=== PATIENT | male | born 1970 | race Caucasian/White ===

== ENCOUNTER → 2024-12-20 | Day surgery (SDC) | payer BC ==
[~2024-12-20] MED LIST: HYOSCYAMINE SULFATE 0.5 MG/ML INJ ONE; IBUPROFEN400 MG PO; LIDOCAINE HCL 2% LOCAL INJ 5 ML SDV VIAL INJ ONE; LISINOPRIL-HCT1 EAC1 PO; LYRICA50 MG PO; METOPROLOL SUCC25 MG PO; PROPOFOL IV EMULSION 50 ML IV ONE
[2024-12-20] MEDS: LACTATED RINGER'S 1,000 ML ONE (11:42)
[2024-12-20 13:44] VITALS: TEMP 97.6
[2024-12-20 14:30] VITALS: BP 100/73; PULSE 95; RESP 16; O2SAT 96
== END | disposition home or self-care (01) ==
LOC: OR 10:36
PROVIDERS: ATTEND Internal Medicine Gastroenterology
DX: Z12.11 Encounter for screening for malignant neoplasm of colon (principal); D12.8 Benign neoplasm of rectum; K59.09 Other constipation; K62.5 Hemorrhage of anus and rectum; K60.2 Anal fissure, unspecified; K64.8 Other hemorrhoids; I10 Essential (primary) hypertension; E78.00 Pure hypercholesterolemia, unspecified; E66.01 Morbid (severe) obesity due to excess calories; M54.2 Cervicalgia; M54.9 Dorsalgia, unspecified; F17.210 Nicotine dependence, cigarettes, uncomplicated; Z71.6 Tobacco abuse counseling; Z01.810 Encounter for preprocedural cardiovascular examination; Z79.1 Long term (current) use of non-steroidal anti-inflammatories (NSAID); Z79.899 Other long term (current) drug therapy; Z68.42 Body mass index [BMI] 45.0-49.9, adult; Z71.3 Dietary counseling and surveillance
CPT/HCPCS: 45385; 93005; J1980; J2003; J2704; J7121; 45378